=== PATIENT | female | born 1965 | race Hispanic/Latino ===

== ENCOUNTER 2020-01-13 11:10 | Emergency (ER) | payer OTHER ==
[~2020-01-13] VITALS: Ht 142.2 cm; Wt 72.6 kg
--- OUTSIDE RECORDS SUMMARY | 2020-01-13 11:13 | XMS REPORT | Summary of Care ---
Author Author Juliann Mejia R.N. [facility] Unknown Address Unknown Phone Unavailable Care Team Providers Care Educational Speech Language Clinician Name Role Phone SELINA VAUGHN [place], JASON Reed Unavailable Unavailable Unavailable Unavailable Functional Status Name Dates Details Functional status health issues are not documented Status: Name Dates Details Cognitive status health issues are not documented Status: Problems Name Dates Details Dysuria (788.1, R30.0) Status: Active Obesity (BMI 30-39.9) (278.00, E66.9) Status: Active Screen for colon cancer (V76.51, Z12.11) Status: Active History of Malignant neoplasm of right female breast, unspecified estrogen receptor status, unspecified site of breast (174.9, C50.911) Status: Resolved History of right total mastectomy (V15.29, Z90.11) Status: Active Flu vaccine need (V04.81, Z23) Status: Active S/P breast reconstruction, left (V43.82, Z98.890) Status: Active Need for Tdap vaccination (V06.1, Z23) Status: Active 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 Active Allergies and Adverse Reactions Name Dates Details No Known Drug Allergies (Allergy) Status: Active Past Medical History Name Dates Details History of 7 Status: Resolved History of malignant neoplasm of breast (V10.3, Z85.3) Status: Resolved History of Malignant neoplasm of right female breast, unspecified estrogen receptor status, unspecified site of breast (174.9, C50.911) Status: Resolved History of Soft tissue mass (729.90, M79.9) Status: Resolved Parity 7 (V61.5, Z87.898) Status: Resolved Procedures Procedure Dates Details History of Bladder Surgery Completed History of Hysterectomy Completed History of Breast Surgery Mastectomy Completed History of Umbilical hernia repair Completed Immunization Name Dates Details Tdap Lot #: [id number] on: 16-Sep-2018 Fluzone Quadrivalent 0.5 ML Intramuscular Suspension Lot #: [id number] on: 16-Sep-2018 Family History Name Dates Details Family history of diabetes mellitus (V18.0, Z83.3) Comments: Multiple Family Members Status: Active Name Dates Details Family history of malignant neoplasm of breast (V16.3, Z80.3) Status: Active Name Dates Details Family history of malignant neoplasm of breast (V16.3, Z80.3) Status: Active Name Dates Details Family history of diabetes mellitus (V18.0, Z83.3) Status: Active Name Dates Details Family history of diabetes mellitus (V18.0, Z83.3) Status: Active Social History Name Dates Details - Status: Name Dates Details Former smoker Vital Signs Date Test Result Details [id number] BP Systolic 137 mm[Hg] Status: Comments: Location: LUE; Position: Sitting BP Diastolic 78 mm[Hg] Status: Comments: Location: LUE; Position: Sitting Height 56 in Status: Weight 163.4 lb Status: Body Mass Index Calculated 36.63 kg/m2 Status: Body Surface Area Calculated 1.63 m2 Status: Temperature 99.4 f Status: Comments: Method: Oral Heart Rate 67 /min Status: Results Date Description Value Details Results not documented Plan of Care Name Dates Details Planned Observations Planned Goals not documented Instructions Name Dates Details Instructions not documented Encounters Appointment; PERRY ZARATE M.D. Encounter Diagnosis: Problem not documented On: 16-Sep-2018 10:00 Appointment; JASON MARKS M.D. Encounter Diagnosis: Problem not documented On: 22-Oct-2018 14:00 Appointment; JASON MARKS M.D. Encounter Diagnosis: Problem not documented On: 12-Nov-2018 14:15
[2020-01-13] MEDS ORDERED: IBUPROFEN 600 MG TAB PO STA (11:38)
[2020-01-13] MEDS ORDERED: IBUPROFEN 400 MG TAB ONE (11:45)
[2020-01-13] MEDS ORDERED: ACETAMINOPHEN 325 MG TAB PO ONE (11:45)
[2020-01-13 13:02] VITALS: BP 136/81
== END 2020-01-13 13:04 | disposition home or self-care (01) ==
LOC: FSED 11:10
DX: J02.0 Streptococcal pharyngitis (principal); Z85.3 Personal history of malignant neoplasm of breast
CPT/HCPCS: 83518; 87400; 99283

== ENCOUNTER → 2021-02-15 | Outpatient (CLI) | payer OTHER | LOC: US 14:30 | PROVIDERS: ATTEND Internal Medicine Gastroenterology | DX: R15.2 Fecal urgency (principal); R19.7 Diarrhea, unspecified | CPT/HCPCS: 76700 ==

== ENCOUNTER → 2021-03-01 | Day surgery (SDC) | payer OTHER ==
[~2021-03-01] MED LIST: FENTANYL CITRATE/PF 100MCG/2 ML INJ ONE; MIDAZOLAM HCL 2 MG/2 ML VIAL ONE; PANTOPRAZOLE 40 MG 10ML VIAL ONE
[2021-03-01 12:31] LABS: WBC,FECAL (FECAL LACTOFERRIN) NEGATIVE (NEGATIVE)
[2021-03-01 13:00] VITALS: BP 131/62
[2021-03-01 14:49] LABS: C DIFFICILE TOXIN A&B AMP PROB NEGATIVE (NEGATIVE)
== END | disposition home or self-care (01) ==
LOC: OR 08:59
PROVIDERS: ATTEND Internal Medicine Gastroenterology
DX: K51.50 Left sided colitis without complications (principal); K63.5 Polyp of colon; K31.7 Polyp of stomach and duodenum; K29.70 Gastritis, unspecified, without bleeding; K20.90 Esophagitis, unspecified without bleeding; K44.9 Diaphragmatic hernia without obstruction or gangrene; K57.30 Diverticulosis of large intestine without perforation or abscess without bleeding; K62.89 Other specified diseases of anus and rectum; K64.8 Other hemorrhoids; K21.9 Gastro-esophageal reflux disease without esophagitis; R00.1 Bradycardia, unspecified; Z01.810 Encounter for preprocedural cardiovascular examination; Z01.812 Encounter for preprocedural laboratory examination; Z20.822 Contact with and (suspected) exposure to COVID-19; Z68.37 Body mass index [BMI] 37.0-37.9, adult
CPT/HCPCS: 43239; 45380; 45385; 83630; 83993; 87045; 87177; 87328; 87493; 93005; C9113; J2250; J3010; U0002; 45378

== ENCOUNTER → 2021-03-06 | Outpatient (CLI) | payer OTHER | LOC: NM 07:57 | PROVIDERS: ATTEND Internal Medicine Gastroenterology | DX: K80.80 Other cholelithiasis without obstruction (principal) | CPT/HCPCS: 78227; A9537 ==

== ENCOUNTER → 2021-03-27 | Day surgery (SDC) | payer OTHER ==
[2021-03-23 14:48] LABS: BASOPHILS % 0.6 % (0.0-1.0); EOSINOPHILS # (AUTO) 0.1 (0.0-0.4); EOSINOPHILS % 1.6 % (0.0-6.0); HEMATOCRIT 37.6 % (34.2-44.1); HEMOGLOBIN 12.6 g/dL (12.0-16.0); LYMPHOCYTES % 33.1 % (18.0-39.1); MEAN CORPUSCULAR HEMOGLOBIN 29.9 pg (28-32); MEAN CORPUSCULAR HGB CONC 33.5 g/dL (31-35); MEAN CORPUSCULAR VOLUME 89.3 fL (81-99); MONOCYTES # (AUTO) 0.4 (0.2-0.8); MONOCYTES % 6.3 % (4.4-11.3); NEUTROPHILS # (AUTO) 3.6 (2.1-6.9); NEUTROPHILS % 58.2 % (38.7-80.0); PLATELET COUNT 269 x10e3/uL (140-360); RED BLOOD COUNT 4.21 x10e6/uL (3.6-5.1); RED CELL DISTRIBUTION WIDTH 12.8 % (11.7-14.4)
[2021-03-23 15:09] LABS: ALANINE AMINOTRANSFERASE 11 IU/L (0-55); ALBUMIN 4.1 g/dL (3.5-5.0); ALBUMIN/GLOBULIN RATIO 1.1 (0.8-2.0); ALKALINE PHOSPHATASE 56 IU/L (40-150); ANION GAP 11.9 mmol/L (8-16); BLOOD UREA NITROGEN 17 mg/dL (7-26); BUN/CREATININE RATIO 20 (6-25); CARBON DIOXIDE 26 mmol/L (22-29); CHLORIDE 109 mmol/L (98-107); CREATININE, SERUM 0.85 mg/dL (0.57-1.11); EST GLOMERULAR FILTRATION RATE > 60 ML/MIN (60-); GLUCOSE 95 mg/dL (74-118); POTASSIUM 4.9 mmol/L (3.5-5.1); SODIUM 142 mmol/L (136-145)
[~2021-03-27] MED LIST changes: +BUPIVACAINE 0.25% 30ML SDV ONE; -FENTANYL CITRATE/PF 100MCG/2 ML INJ ONE; +HYDROCODONE/APAP 7.5MG-325MG 1 EA TAB ONE; +HYDROMORPHONE 1MG/1ML INJ ONE; -MIDAZOLAM HCL 2 MG/2 ML VIAL ONE; -PANTOPRAZOLE 40 MG 10ML VIAL ONE
[2021-03-27 11:30] VITALS: BP 103/63
== END | disposition home or self-care (01) ==
LOC: OR 06:16
PROVIDERS: ATTEND Surgery
DX: K80.10 Calculus of gallbladder with chronic cholecystitis without obstruction (principal); K21.9 Gastro-esophageal reflux disease without esophagitis; K66.0 Peritoneal adhesions (postprocedural) (postinfection); K42.9 Umbilical hernia without obstruction or gangrene; Z01.810 Encounter for preprocedural cardiovascular examination; Z86.16 Personal history of COVID-19; Z01.812 Encounter for preprocedural laboratory examination; Z20.822 Contact with and (suspected) exposure to COVID-19
CPT/HCPCS: 36415; 47562; 80053; 85025; 88304; C1766; J1170; U0002